=== PATIENT | female | born 1985 | race Caucasian/White ===

== ENCOUNTER → 2022-02-04 10:30 | Outpatient (BNVA) | payer OTHER, SELFPAY | PROVIDERS: Family Provider Registered Nurse; PCP Registered Nurse; Visit Provider Nurse Practitioner Women's Health | DX: Z01.419 Encounter for gynecological examination (general) (routine) without abnormal findings (principal); E28.2 Polycystic ovarian syndrome | CPT/HCPCS: 87624 ==

== ENCOUNTER → 2022-10-05 14:16 | Outpatient (BNVA) | payer OTHER, SELFPAY | PROVIDERS: Family Provider Registered Nurse; PCP Family Medicine; Visit Provider Nurse Practitioner Family | DX: J02.9 Acute pharyngitis, unspecified (principal); K12.1 Other forms of stomatitis; K13.79 Other lesions of oral mucosa | CPT/HCPCS: 87071; 87880 ==

== ENCOUNTER → 2023-03-09 13:08 | Outpatient (BNVA) | payer OTHER, SELFPAY | PROVIDERS: Family Provider Registered Nurse; PCP Family Medicine; Visit Provider Family Medicine | DX: R63.5 Abnormal weight gain (principal); E28.2 Polycystic ovarian syndrome | CPT/HCPCS: 80053; 80061; 83036; 84439; 84443; 84481; 85025 ==

== ENCOUNTER → 2023-07-10 10:44 | Outpatient (BNVA) | payer OTHER, SELFPAY | PROVIDERS: Family Provider Registered Nurse; PCP Family Medicine; Visit Provider Family Medicine | DX: Z20.828 Contact with and (suspected) exposure to other viral communicable diseases (principal); R06.00 Dyspnea, unspecified; J11.1 Influenza due to unidentified influenza virus with other respiratory manifestations; R06.02 Shortness of breath | CPT/HCPCS: 87400 ==

== ENCOUNTER → 2024-01-23 10:02 | Outpatient (BNVA) | payer OTHER, SELFPAY | PROVIDERS: Family Provider Registered Nurse; PCP Family Medicine; Visit Provider Family Medicine | DX: E66.9 Obesity, unspecified (principal) | CPT/HCPCS: 83036 ==